=== PATIENT | female | born 1980 | race Caucasian/White ===

== ENCOUNTER 2020-02-06 20:37 | Emergency (ER) | payer SELFPAY ==
[2020-02-06 20:59] VITALS: BP 145/85; PULSE 102; RESP 14; TEMP 36.7; O2SAT 98; BMI 43.5
--- NOTE | 2020-02-06 21:09 | XR_ITS ---
WS: [id number] XR knee LT 3V* [id number] REASON FOR EXAM: left knee injury FINDINGS: The meniscal spaces are well preserved. The patella, femur, tibia, fibula show no fractures. The patella tibial space was normal. The patellofemoral articulations normal. XR/XR knee LT 3V* [id number] IMPRESSION: Negative left knee
--- NOTE | 2020-02-06 21:09 | XR_ITS ---
WS: [id number] XR hip LT 2-3V wo/w pel* [id number] REASON FOR EXAM: left hip injury FINDINGS: Degenerate changes through the os acetabuli on the left side. The remaining left hip appears to be normal. The ilium, ischium, and pubis bilaterally are normal. No fractures of the capital head of the left femur, neck, or intertrochanteric area. XR/XR hip LT 2-3V wo/w pel* [id number] IMPRESSION: Degenerate changes of the os acetabula on the left.
--- NOTE | 2020-02-06 21:09 | XR_ITS ---
WS: [id number] XR shoulder RT min 2V* [id number] REASON FOR EXAM: right shoulder injury FINDINGS: The acromioclavicular joint was normal. The glenoid humeral articulations normal. The clavicle shows no fractures. The scapula was normal. XR/XR shoulder RT min 2V* [id number] IMPRESSION: Negative right shoulder
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
[2020-02-06] MEDS: HYDROcodone-acetaminophen 7.5-325 mg Tablet 1 TAB PO (22:22)
[2020-02-06 22:33] VITALS: BP 142/58; PULSE 82; RESP 18; O2SAT 99
--- NOTE | 2020-02-08 15:04 | DCPLANNER ---
regional business development manager had message to schedule a follow up appointment for patient with ortho. regional business development manager called the ortho clinic, spoke with Pat, gave clinic patients information. regional business development manager was told that patients information would be printed and reviewed. Clinic will call high risk case manager and patient with appointment information.
--- NOTE | 2020-02-09 11:11 | DCPLANNER ---
Michela from ortho called community case manager stating that after patients chart was reviewed by both Dr. Louis and Dr. Brown, it is recommended that patient follow up with primary care physician. If patient continues to have pain then patient can call for further evaluation.
== END 2020-02-06 22:38 | disposition home or self-care (01) ==
PROVIDERS: Emergency Provider Emergency Medicine
DX: S43.401A Unspecified sprain of right shoulder joint, initial encounter (principal); S80.02XA Contusion of left knee, initial encounter; X50.9XXA Other and unspecified overexertion or strenuous movements or postures, initial encounter; F17.210 Nicotine dependence, cigarettes, uncomplicated
CPT/HCPCS: 12345; 73030; 73502; 73562; 99281; 99283